=== PATIENT | female | born 1935 | race Caucasian/White ===

== ENCOUNTER 2018-10-11 05:16 | Observation (INO) | payer OTHER ==
[~2018-10-11] VITALS: Ht 162.6 cm; Wt 68.2 kg
[2018-10-11 06:11] LABS: BASOPHILS # (AUTO) 0.07 x10^3/uL (0-0.1); BASOPHILS % (AUTO) 1 % (0-1); EOSINOPHILS # (AUTO) 0.34 x10^3/uL (0-0.4); EOSINOPHILS % (AUTO) 4 % (1-7); LYMPHOCYTES # (AUTO) 1.44 x10^3/uL (1-3.4); LYMPHOCYTES % (AUTO) 19 % (22-44); MD NO; MEAN CORPUSCULAR HEMOGLOBIN 26.5 pg (27.0-34.8); MEAN CORPUSCULAR HGB CONC 32.7 g/dL (32.4-35.8); MEAN CORPUSCULAR VOLUME 81.2 fL (80-100); MEAN PLATELET VOLUME 8.2 fL (7.4-10.4); MONOCYTES # (AUTO) 0.53 x10^3/uL (0.2-0.8); MONOCYTES % (AUTO) 7 % (2-9); NEUTROPHILS # (AUTO) 5.36 x10^3/uL (1.8-6.8); NEUTROPHILS % (AUTO) 69 % (42-75); PLATELET COUNT 318 x10^3/uL (130-400); RED BLOOD COUNT 3.43 x10^6/uL (3.82-5.3); RED CELL DISTRIBUTION WIDTH 17.7 % (9.6-15.2)
[2018-10-11 06:13] LABS: ALBUMIN 2.6 g/dL (3.4-5.0); ANION GAP 11 mmol/L (5-15); CALCIUM 8.2 mg/dL (8.5-10.1); CHLORIDE 114 mmol/L (98-107)
[2018-10-11 06:20] LABS: ALANINE AMINOTRANSFERASE 25 U/L (12-78); ALKALINE PHOSPHATASE 123 U/L (45-117); BILIRUBIN,TOTAL 0.4 mg/dL (0.2-1.0); CREATININE 0.93 mg/dL (0.55-1.02); TOTAL PROTEIN 5.7 g/dL (6.4-8.2); TROPONIN I 0.097 ng/mL (0.000-0.045)
[2018-10-11 06:22] LABS: INTERNATIONAL NORMALIZED RATIO 1.44 (0.93-1.1); PROTHROMBIN TIME 15.1 Seconds (9.6-11.5)
[2018-10-11] MEDS ORDERED: PRED1TAB PO ×2 (06:51→08:39)
[2018-10-11] MEDS ORDERED: LISI5TAB7 PO (06:51)
[2018-10-11] MEDS ORDERED: LEVO137T3 PO (06:51)
[2018-10-11] MEDS ORDERED: FURO80TA3 PO (06:51)
[2018-10-11] MEDS ORDERED: CARV6.2512 PO (06:51)
[2018-10-11] MEDS ORDERED: ATOR40TA PO (06:51)
[2018-10-11] MEDS ORDERED: morphine SULFATE 10 MG/ML, 1ML IVPush PRN (08:00)
[2018-10-11] MEDS ORDERED: ONDANSETRON ODT 4 MG PO PRN (08:00)
[2018-10-11] MEDS ORDERED: POLYETHYLENE GLYCOL 17 GM PACKET PO PRN (08:00)
[2018-10-11] MEDS ORDERED: LABETALOL 5MG/ML, 20ML IVPush PRN (08:00)
[2018-10-11] MEDS ORDERED: ONDANSETRON 2MG/ML, 2ML IVPush PRN (08:00)
[2018-10-11] MEDS ORDERED: hydrALAzine 20 MG/ML, 1ML IVPush PRN (08:00)
[2018-10-11] MEDS ORDERED: WARF2TAB PO (08:07)
[2018-10-11 08:32] VITALS: BP 132/75
[2018-10-11] MEDS ORDERED: FLUT9.9S NS (08:39)
[2018-10-11 08:44] LABS: % IRON SATURATION 12 % (20-55); IRON LEVEL 29 mcg/dL (50-170); TOTAL IRON BINDING CAPACITY 235 mcg/dL (250-450)
[2018-10-11] MEDS ORDERED: LEVOTHYROXINE 137 MCG TABLET PO SCH (09:00)
[2018-10-11 09:10] LABS: FOLATE LEVEL 18.2 ng/mL (3.1-17.5)
[2018-10-11] MEDS: CARVEDILOL 6.25 MG TABLET PO SCH ×2 (09:46→21:28)
[2018-10-11] MEDS: APIXABAN 5 MG TABLET PO SCH ×2 (09:47→21:28)
[2018-10-11] MEDS: LISINOPRIL 5 MG TABLET PO SCH (09:47)
[2018-10-11] MEDS ORDERED: MAGNESIUM SULFATE PMX 2GM/50ML 50 ML IV ONE (10:30)
[2018-10-11] MEDS: NS + 20MEQ KCL 1,000 ML IV SCH ×2 (11:05→14:59)
[2018-10-11 12:17] VITALS: BP 111/61
[2018-10-11 14:32] LABS: TROPONIN I 0.109 ng/mL (0.000-0.045)
[2018-10-11 19:17] VITALS: BP 133/66
[2018-10-11] MEDS: ATORVASTATIN 40 MG TABLET PO SCH (21:28)
[2018-10-11] MEDS ORDERED: NITROGLYCERIN 0.4 MG/SPRAY SL PRN (21:30)
[2018-10-11] MEDS ORDERED: NITROGLYCERIN 0.4 MG BOTTLE (25 TABS) SL PRN (21:30)
[2018-10-11 21:50] VITALS: BP 148/72
[2018-10-11 21:56] VITALS: BP 123/64
[2018-10-11] MEDS: ACETAMINOPHEN 325 MG TABLET PO PRN (22:17)
[2018-10-12 01:20] VITALS: BP 132/64
[2018-10-12 05:21] LABS: BASOPHILS # (AUTO) 0.04 x10^3/uL (0-0.1); BASOPHILS % (AUTO) 1 % (0-1); EOSINOPHILS # (AUTO) 0.35 x10^3/uL (0-0.4); EOSINOPHILS % (AUTO) 5 % (1-7); LYMPHOCYTES # (AUTO) 1.74 x10^3/uL (1-3.4); LYMPHOCYTES % (AUTO) 26 % (22-44); MD NO; MEAN CORPUSCULAR HEMOGLOBIN 26.7 pg (27.0-34.8); MEAN CORPUSCULAR VOLUME 81.1 fL (80-100); MEAN PLATELET VOLUME 8.1 fL (7.4-10.4); MONOCYTES % (AUTO) 7 % (2-9); NEUTROPHILS # (AUTO) 4.22 x10^3/uL (1.8-6.8); NEUTROPHILS % (AUTO) 62 % (42-75); PLATELET COUNT 338 x10^3/uL (130-400); RED BLOOD COUNT 3.57 x10^6/uL (3.82-5.3); RED CELL DISTRIBUTION WIDTH 17.4 % (9.6-15.2)
[2018-10-12 05:41] LABS: CHLORIDE 114 mmol/L (98-107)
[2018-10-12 05:56] LABS: ANION GAP 10 mmol/L (5-15); CALCIUM 8.4 mg/dL (8.5-10.1); CREATININE 0.79 mg/dL (0.55-1.02)
[2018-10-12] MEDS: LEVOTHYROXINE 100 MCG TABLET PO SCH (08:24)
[2018-10-12] MEDS ORDERED: REGADENOSON 0.4 MG/5 ML SYRINGE ONE (08:47)
[2018-10-12 09:30] VITALS: BP 124/69
[2018-10-12] MEDS: CARVEDILOL 6.25 MG TABLET PO SCH ×2 (10:25→21:26)
[2018-10-12] MEDS: LISINOPRIL 5 MG TABLET PO SCH (10:26)
[2018-10-12] MEDS: APIXABAN 5 MG TABLET PO SCH ×2 (10:26→21:25)
[2018-10-12] MEDS: SPIRONOLACTONE 25 MG TABLET PO SCH (10:29)
[2018-10-12 14:08] VITALS: BP 110/63
[2018-10-12 18:35] VITALS: BP 137/75
[2018-10-12] MEDS: ATORVASTATIN 40 MG TABLET PO SCH (21:25)
[2018-10-13] MEDS: ACETAMINOPHEN 325 MG TABLET PO PRN (00:43)
[2018-10-13 01:48] VITALS: BP 140/70
[2018-10-13] MEDS: LEVOTHYROXINE 100 MCG TABLET PO SCH (05:25)
[2018-10-13 06:32] VITALS: BP 132/74
[2018-10-13] MEDS: SPIRONOLACTONE 25 MG TABLET PO SCH (08:21)
[2018-10-13] MEDS: LISINOPRIL 5 MG TABLET PO SCH (08:22)
[2018-10-13] MEDS: CARVEDILOL 6.25 MG TABLET PO SCH (08:22)
[2018-10-13] MEDS: APIXABAN 5 MG TABLET PO SCH ×2 (08:22→19:53)
[2018-10-13 12:14] VITALS: BP 129/86
[2018-10-13] MEDS ORDERED: POTASSIUM CHLORIDE 20 MEQ TAB.ER.PRT PO ONE (16:30)
[2018-10-13 18:50] VITALS: BP 123/57
[2018-10-13] MEDS: ATORVASTATIN 40 MG TABLET PO SCH (19:52)
[2018-10-13] MEDS: CARVEDILOL 12.5 MG TABLET PO SCH (19:53)
[2018-10-14 01:26] VITALS: BP 142/75
[2018-10-14] MEDS: LEVOTHYROXINE 100 MCG TABLET PO SCH (05:32)
[2018-10-14 06:49] VITALS: BP 123/65
[2018-10-14] MEDS: LISINOPRIL 5 MG TABLET PO SCH (08:07)
[2018-10-14] MEDS: SPIRONOLACTONE 25 MG TABLET PO SCH (08:07)
[2018-10-14] MEDS: CARVEDILOL 12.5 MG TABLET PO SCH ×2 (08:07→21:47)
[2018-10-14] MEDS: APIXABAN 5 MG TABLET PO SCH ×2 (08:08→21:48)
[2018-10-14 12:11] VITALS: BP 146/75
[2018-10-14 18:51] VITALS: BP 123/62
[2018-10-14] MEDS: ATORVASTATIN 40 MG TABLET PO SCH (21:47)
[2018-10-15 00:47] VITALS: BP 114/58
[2018-10-15] MEDS: LEVOTHYROXINE 100 MCG TABLET PO SCH (05:26)
[2018-10-15 06:57] VITALS: BP 132/72
[2018-10-15] MEDS ORDERED: LEVO100T PO (08:51)
[2018-10-15] MEDS ORDERED: CARV12.543 PO (08:51)
[2018-10-15] MEDS ORDERED: SPIR25TA PO (08:51)
[2018-10-15] MEDS ORDERED: FERR325T18 PO (08:51)
[2018-10-15] MEDS ORDERED: APIX5TAB PO (08:51)
[2018-10-15] MEDS ORDERED: IRON SUCROSE COMPLEX 100MG/5ML IV SCH (09:00)
[2018-10-15] MEDS: SPIRONOLACTONE 25 MG TABLET PO SCH (10:02)
[2018-10-15] MEDS: APIXABAN 5 MG TABLET PO SCH (10:03)
[2018-10-15] MEDS: CARVEDILOL 12.5 MG TABLET PO SCH (10:03)
[2018-10-15] MEDS: LISINOPRIL 5 MG TABLET PO SCH (10:03)
[2018-10-15 12:13] VITALS: BP 116/68
[2018-10-15 12:52] LABS: OCCULT BLOOD NEGATIVE (NEGATIVE)
== END 2018-10-15 14:45 | disposition home or self-care (01) ==
LOC: ED 07:24 → OBSVTOIN 07:44 → EDIP 07:44 → INTOOBSV 07:44 → 5SO 08:29 → DCLOUNGE 10-15 14:15
PROVIDERS: ADMIT Hospitalist; ATTEND Hospitalist
DX: R00.2 Palpitations (principal); R06.02 Shortness of breath; E87.0 Hyperosmolality and hypernatremia; D64.9 Anemia, unspecified; E44.0 Moderate protein-calorie malnutrition; I25.10 Atherosclerotic heart disease of native coronary artery without angina pectoris; E78.5 Hyperlipidemia, unspecified; I50.20 Unspecified systolic (congestive) heart failure; I49.3 Ventricular premature depolarization; E03.9 Hypothyroidism, unspecified; I48.0 Paroxysmal atrial fibrillation; I42.9 Cardiomyopathy, unspecified; Z79.01 Long term (current) use of anticoagulants; Z80.0 Family history of malignant neoplasm of digestive organs; Z86.711 Personal history of pulmonary embolism; Z87.891 Personal history of nicotine dependence; Z95.0 Presence of cardiac pacemaker; Z96.641 Presence of right artificial hip joint; Z96.653 Presence of artificial knee joint, bilateral
CPT/HCPCS: 36415; 71045; 78452; 80048; 80053; 82272; 82306; 82607; 82728; 82746; 83540; 83550; 83735; 84100; 84443; 84484; 85025; 85610; 93005; 93017; 93306; 96365; 96366; 96375; 99284; A9502; C9898; G0378; J1756; J2785; J3475; J3480; J7512

== ENCOUNTER 2020-07-17 11:02 | Observation (INO) | payer MEDICARE ==
[~2020-07-17] VITALS: Ht 162.6 cm; Wt 84.2 kg
[~2020-07-17 11:02] MED LIST: APIX5TAB PO; ATOR40TA PO; CARV12.543 PO; CARV6.2512 PO; FERR325T18 PO; FLUT9.9S NS; FURO80TA3 PO; LEVO100T PO; LEVO137T3 PO; LISI5TAB7 PO; PRED1TAB19 PO; SPIR25TA PO; WARF2TAB PO
--- NOTE | 2020-07-17 11:14 | NUR ---
MANAGER TRAINING AND DEVELOPMENT: THIS RN PRESENT DURING EKG. PT TOLERATED WITH NO COMPLICATIONS.
[2020-07-17 12:09] LABS: BASOPHILS # (AUTO) 0.03 x10^3/uL (0-0.1); BASOPHILS % (AUTO) 0 % (0-1); EOSINOPHILS # (AUTO) 0.25 x10^3/uL (0-0.4); EOSINOPHILS % (AUTO) 2 % (1-7); LYMPHOCYTES # (AUTO) 1.36 x10^3/uL (1-3.4); LYMPHOCYTES % (AUTO) 13 % (22-44); MD NO; MEAN CORPUSCULAR HEMOGLOBIN 30.4 pg (27.0-34.8); MEAN CORPUSCULAR HGB CONC 32.5 g/dL (32.4-35.8); MEAN PLATELET VOLUME 7.8 fL (7.4-10.4); MONOCYTES # (AUTO) 0.72 x10^3/uL (0.2-0.8); MONOCYTES % (AUTO) 7 % (2-9); NEUTROPHILS # (AUTO) 8.04 x10^3/uL (1.8-6.8); NEUTROPHILS % (AUTO) 77 % (42-75); PLATELET COUNT 354 x10^3/uL (130-400); RED BLOOD COUNT 4.65 x10^6/uL (3.82-5.3); RED CELL DISTRIBUTION WIDTH 13.4 % (9.6-15.2)
[2020-07-17 12:21] LABS: ALANINE AMINOTRANSFERASE 21 U/L (12-78); ALBUMIN 3.2 g/dL (3.4-5.0); ANION GAP 7 mmol/L (5-15); CALCIUM 9.7 mg/dL (8.5-10.1); CHLORIDE 111 mmol/L (98-107); CREATININE 1.26 mg/dL (0.55-1.02); INTERNATIONAL NORMALIZED RATIO 1.17 (0.93-1.1); PROTHROMBIN TIME 12.1 Seconds (9.6-11.5)
[2020-07-17 12:24] LABS: ALKALINE PHOSPHATASE 96 U/L (45-117); TOTAL PROTEIN 6.9 g/dL (6.4-8.2)
--- NOTE | 2020-07-17 13:32 | NUR ---
OFF FLOOR TO CT
--- NOTE | 2020-07-17 13:32 | NUR ---
PT C/O SHORTNESS OF BREATH X 1 WEEK. PT ALSO STATES SHE HAS AN OCCASIONAL COUGH. PT DENIES CHEST PAIN AT THIS TIME. PT PLACED SEMI-FOWLERS IN POSITION OF COMFORT.
--- NOTE | 2020-07-17 13:39 | NUR ---
PT BACK IN ROOM FROM CT
[2020-07-17] MEDS ORDERED: OMNIPAQUE 350 MG/ML, 100ML BOTTLE ONE (13:43)
[2020-07-17] MEDS ORDERED: ALBUTEROL/IPRATROPIUM 2.5MG/0.5MG, 3 ML NPPB ONE (14:30)
[2020-07-17 14:35] LABS: TROPONIN I < 0.015 ng/mL (0.000-0.045)
[2020-07-17] MEDS ORDERED: ONDANSETRON 2MG/ML, 2ML ONE (14:47)
--- NOTE | 2020-07-17 14:50 | NUR ---
PT UP OUT OF BED TO USE BATHROOM AND BACK TO BED. PT STATES SHE FEELS "WORN OUT" AFTER WALKING. PT REMAINS SHORT OF BREATH. ADDITIONALLY COMPLAINING OF LACK OF APPETITE AND A "HOT FEELING" IN HER STOMACH. MD ADVISED OF STATUS. AWAITING FURTHER ORDERS.
[2020-07-17] MEDS ORDERED: ONDANSETRON 2MG/ML, 2ML IVPush ONE (15:00)
[2020-07-17] MEDS ORDERED: SODIUM CHLORIDE 0.9%, 500ML IVBOLUS ONE (15:00)
[2020-07-17] MEDS ORDERED: ALBUTEROL-IPRATROPIUM MDI INH INH PRN (15:00)
--- NOTE | 2020-07-17 15:14 | NUR ---
MEDICATED PER MAR
--- NOTE | 2020-07-17 16:06 | NUR ---
PT ASSESSED AFTER COMPLETION OF 500 ML NS AND CUP OF BROTH. PT STATES SHE STILL FEELS WEAK. AWAITING FURTHER ORDERS.
--- NOTE | 2020-07-17 16:06 | NUR ---
PT MEDICATED PER MAR.
--- NOTE | 2020-07-17 16:08 | NUR ---
AFTER COMBIVENT PT STATES HER LUNGS "FEEL A LITTLE BIT BETTER, JUST A LITTLE THOUGH." NOTE INITIALLY ADDED TO WRONG CHART. CORRECTED
[2020-07-17] MEDS ORDERED: methylPREDNISolone SOD SUCC 125 MG/2 ML IVPush ONE (16:30)
[2020-07-17] MEDS ORDERED: methylPREDNISolone SOD SUCC 125 MG/2 ML ONE (16:30)
[2020-07-17] MEDS: SODIUM CHLORIDE 0.9% 1,000 ML IV SCH (17:08)
--- NOTE | 2020-07-17 17:12 | NUR ---
PHONE PT REPORT GIVEN ODELL BAIN.
[2020-07-17] MEDS ORDERED: ACETAMINOPHEN 325 MG TABLET PO PRN (17:30)
[2020-07-17] MEDS ORDERED: ONDANSETRON 2MG/ML, 2ML IVPush PRN (17:30)
[2020-07-17] MEDS ORDERED: ONDANSETRON ODT 4 MG PO PRN (17:30)
[2020-07-17 17:45] VITALS: BP 100/62
[2020-07-17 20:33] VITALS: BP 125/77
[2020-07-17] MEDS ORDERED: CARVEDILOL 6.25 MG TABLET PO SCH (21:00)
[2020-07-17] MEDS ORDERED: APIXABAN 5 MG TABLET PO SCH (21:00)
[2020-07-17 21:10] VITALS: BP 105/60
[2020-07-17] MEDS: LACTOBACILLUS CHEW TABLET PO SCH (21:17)
[2020-07-17] MEDS: ATORVASTATIN 40 MG TABLET PO SCH (21:17)
[2020-07-17] MEDS: APIXABAN 5 MG TABLET PO SCH (21:18)
[2020-07-17] MEDS: FLUTICASONE NASAL SPRAY 16GM NAS SCH (21:18)
[2020-07-18 01:27] VITALS: BP 104/61
[2020-07-18] MEDS: LEVOTHYROXINE 100 MCG TABLET PO SCH (05:35)
[2020-07-18 06:38] LABS: BASOPHILS # (AUTO) 0.01 x10^3/uL (0-0.1); BASOPHILS % (AUTO) 0 % (0-1); EOSINOPHILS % (AUTO) 0 % (1-7); LYMPHOCYTES # (AUTO) 0.63 x10^3/uL (1-3.4); LYMPHOCYTES % (AUTO) 10 % (22-44); MD NO; MEAN CORPUSCULAR HEMOGLOBIN 30.5 pg (27.0-34.8); MEAN CORPUSCULAR HGB CONC 32.8 g/dL (32.4-35.8); MONOCYTES # (AUTO) 0.03 x10^3/uL (0.2-0.8); MONOCYTES % (AUTO) 1 % (2-9); NEUTROPHILS # (AUTO) 5.64 x10^3/uL (1.8-6.8); NEUTROPHILS % (AUTO) 89 % (42-75); PLATELET COUNT 305 x10^3/uL (130-400); RED BLOOD COUNT 4.28 x10^6/uL (3.82-5.3); RED CELL DISTRIBUTION WIDTH 13.3 % (9.6-15.2)
[2020-07-18 06:45] LABS: ANION GAP 9 mmol/L (5-15); CHLORIDE 112 mmol/L (98-107); CREATININE 1.11 mg/dL (0.55-1.02)
[2020-07-18] MEDS: FLUTICASONE NASAL SPRAY 16GM NAS SCH (08:33)
[2020-07-18] MEDS: APIXABAN 5 MG TABLET PO SCH ×2 (08:33→20:39)
[2020-07-18] MEDS: CARVEDILOL 3.125 MG TABLET PO SCH ×2 (08:34→20:40)
[2020-07-18] MEDS: LACTOBACILLUS CHEW TABLET PO SCH ×3 (08:34→20:39)
[2020-07-18] MEDS ORDERED: OMNIPAQUE 350 MG/ML, 100ML BOTTLE ONE (08:51)
[2020-07-18 08:54] VITALS: BP 113/60
[2020-07-18] MEDS: SODIUM CHLORIDE 0.9% 1,000 ML IV SCH (09:48)
[2020-07-18] MEDS ORDERED: CARV3.1212 PO (12:09)
[2020-07-18] MEDS ORDERED: APIX5TAB PO (12:09)
[2020-07-18] MEDS ORDERED: ACID1TAB7 PO (12:09)
[2020-07-18 13:17] VITALS: BP 108/63
[2020-07-18 19:54] VITALS: BP 106/76
[2020-07-18] MEDS: ATORVASTATIN 40 MG TABLET PO SCH (20:40)
[2020-07-19 00:13] VITALS: BP 133/76
[2020-07-19] MEDS: SODIUM CHLORIDE 0.9% 1,000 ML IV SCH (02:06)
[2020-07-19] MEDS: LEVOTHYROXINE 100 MCG TABLET PO SCH (05:45)
[2020-07-19 05:48] LABS: CHLORIDE 116 mmol/L (98-107)
[2020-07-19 06:11] LABS: ANION GAP 9 mmol/L (5-15); CALCIUM 8.5 mg/dL (8.5-10.1); CREATININE 0.96 mg/dL (0.55-1.02)
[2020-07-19 07:35] VITALS: BP 153/84
[2020-07-19] MEDS: FLUTICASONE NASAL SPRAY 16GM NAS SCH (09:00)
[2020-07-19] MEDS: LACTOBACILLUS CHEW TABLET PO SCH (09:32)
[2020-07-19] MEDS: CARVEDILOL 3.125 MG TABLET PO SCH (09:32)
[2020-07-19] MEDS: APIXABAN 5 MG TABLET PO SCH (09:32)
[2020-07-19] MEDS ORDERED: LISI2.5T PO (12:14)
== END 2020-07-19 13:20 | disposition home or self-care (01) ==
LOC: ED 11:44 → EDIP 16:46 → INTOOBSV 16:46 → 3N 17:28 → INTOOBSV 07-18 15:44 → OBSVTOIN 07-18 15:44 → DCLOUNGE 07-19 13:00
PROVIDERS: ADMIT Internal Medicine; ATTEND Internal Medicine
DX: R06.02 Shortness of breath (principal); R19.7 Diarrhea, unspecified; N17.9 Acute kidney failure, unspecified; R10.9 Unspecified abdominal pain; R79.89 Other specified abnormal findings of blood chemistry; I11.0 Hypertensive heart disease with heart failure; I50.20 Unspecified systolic (congestive) heart failure; I48.0 Paroxysmal atrial fibrillation; E03.9 Hypothyroidism, unspecified; R33.9 Retention of urine, unspecified; E87.0 Hyperosmolality and hypernatremia; M35.3 Polymyalgia rheumatica; Z87.891 Personal history of nicotine dependence; Z79.899 Other long term (current) drug therapy; Z86.711 Personal history of pulmonary embolism; Z85.038 Personal history of other malignant neoplasm of large intestine; Z79.01 Long term (current) use of anticoagulants; Z96.641 Presence of right artificial hip joint; Z96.653 Presence of artificial knee joint, bilateral; Z66 Do not resuscitate
CPT/HCPCS: 36415; 71045; 71260; 74177; 80048; 80053; 83605; 83880; 84145; 84484; 85025; 85610; 85730; 87040; 93005; 96361; 96374; 96375; 99285; G0378; J2405; J2930; J7030; J7040; Q9967

== ENCOUNTER → 2020-11-10 | Outpatient (CLI) | payer MEDICARE ==
[~2020-11-10] MED LIST changes: +ACID1TAB7 PO; +CARV3.1212 PO; +LISI2.5T PO
== END | disposition home or self-care (01) ==
LOC: CVU 10:41
PROVIDERS: ATTEND Internal Medicine Clinical Cardiac Electrophysiology
DX: I08.3 Combined rheumatic disorders of mitral, aortic and tricuspid valves (principal); I48.91 Unspecified atrial fibrillation; I11.9 Hypertensive heart disease without heart failure; I44.7 Left bundle-branch block, unspecified; I42.9 Cardiomyopathy, unspecified
CPT/HCPCS: 93306

== ENCOUNTER 2020-11-21 11:54 | Outpatient (CLI) | payer MEDICARE | END 2020-11-21 23:59 | disposition home or self-care (01) | LOC: STAR 11:54 | PROVIDERS: ATTEND Internal Medicine Clinical Cardiac Electrophysiology | DX: Z20.822 Contact with and (suspected) exposure to COVID-19 (principal) | CPT/HCPCS: 87635 ==

== ENCOUNTER 2020-11-25 05:54 | Observation (INO) | payer MEDICARE ==
[~2020-11-25] VITALS: Ht 162.6 cm; Wt 75.0 kg
[2020-11-25 06:29] VITALS: BP 116/64
[2020-11-25] MEDS: SODIUM CHLORIDE 0.9% 1,000 ML IV SCH ×3 (06:30→22:30)
[2020-11-25] MEDS ORDERED: CEFAZOLIN PMX 2GM/50ML 50 ML IVPB ONE (06:30)
[2020-11-25] MEDS ORDERED: CYAN25003 PO (06:40)
[2020-11-25] MEDS ORDERED: LEVO50TA5 PO (06:40)
[2020-11-25] MEDS ORDERED: CARV3.1212 PO (06:40)
[2020-11-25 06:47] LABS: BASOPHILS % (AUTO) 1 % (0-1); EOSINOPHILS % (AUTO) 3 % (1-7); LYMPHOCYTES % (AUTO) 17 % (22-44); MEAN CORPUSCULAR HEMOGLOBIN 30.7 pg (27.0-34.8); MEAN CORPUSCULAR HGB CONC 33.8 g/dL (32.4-35.8); MEAN PLATELET VOLUME 7.6 fL (7.4-10.4); MONOCYTES % (AUTO) 8 % (2-9); NEUTROPHILS % (AUTO) 71 % (42-75); PLATELET COUNT 292 x10^3/uL (130-400); RED BLOOD COUNT 4.46 x10^6/uL (3.82-5.3); RED CELL DISTRIBUTION WIDTH 14.6 % (9.6-15.2)
[2020-11-25 06:48] LABS: MD NO
[2020-11-25 06:54] LABS: INTERNATIONAL NORMALIZED RATIO 1.28 (0.93-1.1); PROTHROMBIN TIME 13.5 Seconds (9.6-11.5)
[2020-11-25 06:55] LABS: ANION GAP 6 mmol/L (5-15); CALCIUM 9.2 mg/dL (8.5-10.1); CHLORIDE 112 mmol/L (98-107); CREATININE 1.32 mg/dL (0.55-1.02)
[2020-11-25] MEDS ORDERED: CEFAZOLIN 1,000 MG ONE ×2 (07:44→08:11)
[2020-11-25] MEDS ORDERED: LIDOCAINE 2%, 20ML ONE ×2 (07:44→07:52)
[2020-11-25] MEDS ORDERED: SUGAMMADEX 200 MG/2 ML IVPush ONE (08:11)
[2020-11-25] MEDS ORDERED: ONDANSETRON 2MG/ML, 2ML ONE (08:11)
[2020-11-25] MEDS ORDERED: PROPOFOL 10 MG/ML, 20ML ONE (08:11)
[2020-11-25] MEDS ORDERED: DEXAMETHASONE 4 MG/ML, 5ML ONE (08:11)
[2020-11-25] MEDS ORDERED: EPHEDRINE 50 MG/ML, 1ML ONE (08:11)
[2020-11-25] MEDS ORDERED: ROCURONIUM 10MG/ML,5ML ONE (08:11)
[2020-11-25] MEDS ORDERED: MIDAZOLAM 1 MG/ML, 2ML ONE (08:13)
[2020-11-25] MEDS ORDERED: FENTANYL PF 250 MCG/5ML ONE (08:13)
[2020-11-25] MEDS ORDERED: DIAZEPAM 5 MG/ML, 2ML IVPush PRN (11:00)
[2020-11-25] MEDS ORDERED: DIPHENHYDRAMINE 50 MG/ML, 1ML IVPush PRN (11:00)
[2020-11-25] MEDS ORDERED: LABETALOL 5MG/ML, 20ML IV PRN (11:00)
[2020-11-25] MEDS ORDERED: MIDAZOLAM 1 MG/ML, 2ML IV PRN (11:00)
[2020-11-25] MEDS ORDERED: MEPERIDINE/PF 25MG/0.5ML IVPush PRN (11:00)
[2020-11-25] MEDS ORDERED: ONDANSETRON 2MG/ML, 2ML IVPush PRN (11:00)
[2020-11-25] MEDS ORDERED: OXYcodone 5 MG/5 ML ORAL.SOL UDC PO PRN (11:00)
[2020-11-25] MEDS ORDERED: HYDROmorphone 1 MG/ML, 1ML INJ IVPush PRN (11:00)
[2020-11-25] MEDS ORDERED: ACETAMINOPHEN 325 MG TABLET PO PRN (11:00)
[2020-11-25] MEDS ORDERED: PROMETHAZINE 12.5 MG SUPP PR PRN (11:00)
[2020-11-25] MEDS ORDERED: EPHEDRINE 50 MG/ML, 1ML IVPush PRN (11:00)
[2020-11-25] MEDS ORDERED: HOLD MEDICATION MC PRN (11:00)
[2020-11-25] MEDS ORDERED: hydrALAzine 20 MG/ML, 1ML IV PRN (11:00)
[2020-11-25] MEDS ORDERED: PROMETHAZINE 25 MG/ML, 1ML IVPush PRN (11:00)
[2020-11-25] MEDS ORDERED: ALBUTEROL SULFATE 2.5 MG/3 ML NPPB PRN (11:00)
[2020-11-25] MEDS ORDERED: OXYcodone 5 MG/5 ML ORAL.SOL UDC ONE (11:09)
[2020-11-25] MEDS ORDERED: FENTANYL PF 100 MCG/2ML ONE (11:09)
[2020-11-25] MEDS: FENTANYL PF 100 MCG/2ML IV PRN ×2 (11:10→13:34)
[2020-11-25] MEDS ORDERED: FUROSEMIDE 40 MG TABLET PO PRN (11:30)
[2020-11-25 12:28] VITALS: BP 105/51
[2020-11-25 14:01] VITALS: BP 105/51
[2020-11-25 20:07] VITALS: BP 111/67
[2020-11-25] MEDS: CARVEDILOL 3.125 MG TABLET PO SCH (20:10)
[2020-11-25] MEDS: HYDROcodone/APAP 5/325 TABLET PO PRN (20:11)
[2020-11-25] MEDS: SODIUM CHLORIDE FLUSH 10ML SYR IVF SCH (21:00)
[2020-11-25] MEDS ORDERED: ATORVASTATIN 40 MG TABLET PO SCH (21:00)
[2020-11-26] MEDS: HYDROcodone/APAP 5/325 TABLET PO PRN ×2 (00:34→09:43)
[2020-11-26 00:38] VITALS: BP 123/67
[2020-11-26] MEDS: SODIUM CHLORIDE 0.9% 1,000 ML IV SCH (05:19)
[2020-11-26] MEDS ORDERED: LEVOTHYROXINE 125 MCG TABLET PO SCH (06:00)
[2020-11-26 06:42] VITALS: BP 107/66
[2020-11-26] MEDS ORDERED: HYDR-1067 PO (08:01)
[2020-11-26] MEDS: CARVEDILOL 3.125 MG TABLET PO SCH (08:35)
[2020-11-26] MEDS: SODIUM CHLORIDE FLUSH 10ML SYR IVF SCH (08:35)
[2020-11-26] MEDS ORDERED: SPIRONOLACTONE 25 MG TABLET PO SCH (09:00)
== END 2020-11-26 11:25 | disposition home or self-care (01) ==
LOC: CACL 05:54 → 5SO 10:32 → CACL 20:57 → DCLOUNGE 11-26 11:18
PROVIDERS: ADMIT Internal Medicine Clinical Cardiac Electrophysiology; ATTEND Internal Medicine Clinical Cardiac Electrophysiology
DX: I42.9 Cardiomyopathy, unspecified (principal); I11.0 Hypertensive heart disease with heart failure; I50.22 Chronic systolic (congestive) heart failure; I44.7 Left bundle-branch block, unspecified; I48.0 Paroxysmal atrial fibrillation; E78.5 Hyperlipidemia, unspecified; F12.10 Cannabis abuse, uncomplicated; Z95.0 Presence of cardiac pacemaker; Z79.899 Other long term (current) drug therapy; Z86.711 Personal history of pulmonary embolism
CPT/HCPCS: 33225; 33229; 36005; 36415; 71045; 80048; 85025; 85610; 96360; 96361; C1769; C1887; C1892; C1894; C1900; C2621; G0378; J0690; J1100; J2250; J2405; J2704; J3010; J3490; J7030; Q9967